=== PATIENT | male | born 1955 | race Caucasian/White ===

== ENCOUNTER 2018-10-04 07:24 | Day surgery (SDC) | payer BC, MEDICARE ==
[2018-09-25 11:50] LABS: BASOPHILS % (AUTO) 0.5 % (0-1); EOSINOPHILS # (AUTO) 0.2 X10'3 (0-0.9); EOSINOPHILS % (AUTO) 2.2 % (0-6); LYMPHOCYTES # (AUTO) 0.9 X10'3 (1.1-4.8); LYMPHOCYTES % (AUTO) 10.5 % (21-51); MEAN CORPUSCULAR HEMOGLOBIN 29.6 PG (27.0-31.0); MEAN CORPUSCULAR HGB CONC 33.4 g/dL (33.0-36.5); MEAN CORPUSCULAR VOLUME 88.5 FL (78-98); MEAN PLATELET VOLUME 9.1 FL (7.4-10.4); MONOCYTES # (AUTO) 1.1 X10'3 (0-0.9); MONOCYTES % (AUTO) 12.9 % (2-12); NEUTROPHILS # (AUTO) 6.1 X10'3 (1.8-7.7); NEUTROPHILS % (AUTO) 73.9 % (42-75); PRE OP HEMATOCRIT 52.8 % (42.0-52.0); PRE OP HEMOGLOBIN 17.7 g/dL (14.0-17.9); PRE OP PLATELET COUNT 143 X10'3 (140-440); RED BLOOD COUNT 5.97 X10'6 (4.70-6.10); RED CELL DISTRIBUTION WIDTH 17.2 % (11.5-14.5)
[2018-09-25 12:04] LABS: PRE OP PROTIME 10.5 SECONDS (9.0-12.0)
[2018-09-25 12:08] LABS: ALBUMIN 3.5 G/DL (3.4-5.0); ALKALINE PHOSPHATASE 56 IU/L (46-116); BLOOD UREA NITROGEN 16 MG/DL (7-18); BUN/CREATININE RATIO 16.8 (5.4-32.0); CHLORIDE 102 MMOL/L (99-107); CREATININE 0.95 MG/DL (0.60-1.10); PRE OP ALT 24 U/L (30-65); PRE OP ANION GAP 4 (8-16); PRE OP AST 16 U/L (10-37); PRE OP BILIRUB, TOTAL 1.8 MG/DL (0.0-1.0); PRE OP GLUCOSE 90 MG/DL (70-104); PRE OP POTASSIUM 4.2 MMOL/L (3.4-5.1); PRE OP SODIUM 139 MMOL/L (135-145); TOTAL CARBON DIOXIDE 32.6 MMOL/L (24-32); TOTAL PROTEIN 6.9 G/DL (6.4-8.2); eGFR 80 ML/MIN
[~2018-10-04] VITALS: Ht 182.9 cm; Wt 96.0 kg
[2018-10-04] VITALS (21 sets, daily range): BP systolic 107–136; BP diastolic 60–88
[~2018-10-04 07:24] MED LIST: BUPR8TAB4 SL; TADA20TA43 PO; [UNRECOGNIZED DRUG - CODE] TOP
[2018-10-04] MEDS ORDERED: cloNIDine hcl/PF 100mcg/ml inj ONE (07:27)
[2018-10-04] MEDS ORDERED: cefazolin/dext.iso 2gm/100 ML IV ONE (07:30)
[2018-10-04] MEDS ORDERED: ringers solution, lacted 1,000 ML IV SCH ×2 (07:30→07:54)
[2018-10-04] MEDS ORDERED: vancomycin inj 1,500 MG in normal saline 300ml IV soln IV ONE (07:30)
[2018-10-04] MEDS ORDERED: famotidine 20mg tablet PO ONE (07:30)
[2018-10-04] MEDS ORDERED: ondansetron/PF 4mg/2ml inj IV PRN ×2 (07:55→12:40)
[2018-10-04] MEDS ORDERED: meperidine/PF 25mg/ml syringe IV PRN ×3 (07:55)
[2018-10-04] MEDS ORDERED: morphine 4 MG/ML inj SYRINge IV PRN ×2 (07:55)
[2018-10-04] MEDS ORDERED: proCHLORperazine 10 MG/2 ml inj IV PRN (07:55)
[2018-10-04] MEDS ORDERED: diazepam 5mg tablet PO ONE (08:35)
[2018-10-04] MEDS ORDERED: sevoflurane 250ml liquid IH ONE (09:15)
[2018-10-04] MEDS ORDERED: LIDOcaine 2% (20mg/ml) 5ml vial ONE (09:15)
[2018-10-04] MEDS ORDERED: fentaNYL /PF 50mcg/ml 5ml ampule ONE (09:16)
[2018-10-04] MEDS ORDERED: MIDAZolam 5mg/5ml vial ONE (09:16)
[2018-10-04] MEDS ORDERED: ROPIVAcaine 0.5% (5mg/ml) 30ml vial ONE (09:19)
[2018-10-04] MEDS ORDERED: propofol inj 20 ML IV ONE (09:43)
[2018-10-04] MEDS ORDERED: dexamethasone sod phosphate 4mg/ml inj. ONE (09:43)
[2018-10-04] MEDS ORDERED: ketorolac trometh. 30mg/ml inj. ONE (09:47)
[2018-10-04] MEDS ORDERED: ondansetron/PF 4mg/2ml inj ONE (09:48)
[2018-10-04] MEDS ORDERED: BUPIVAcaine/PF 2.5 mg/ml (0.25%) 30ml vial ONE (09:52)
--- NOTE | 2018-10-04 12:34 | NUR ---
Received from OR via BED, accompanied by Anesthesiologist DR HELTON and report given by Anesthesiologist. PT DROWSY, DENIES PAIN, LEFT SHOULDER W/ISLAND DRSG COVERING INCISION CDI, LEFT ARM IN SLING, ICE PACK IN PLACE ON SHOULDER, HAND/ARM/FINGERS PWD. Addendum: 10/04/18 at 1310 by Morena Lee RN Amended: Links added.
[2018-10-04] MEDS ORDERED: non-formulary drug (Tadalafil 1 TAB) PO PRN (12:35)
[2018-10-04] MEDS ORDERED: acetaminophen 325mg tablet PO PRN (12:40)
[2018-10-04] MEDS ORDERED: bisacodyl 10mg suppository rectal RC PRN (12:40)
[2018-10-04] MEDS ORDERED: oxyCODONE IR 5mg (immed. release) tablet PO PRN (12:40)
[2018-10-04] MEDS ORDERED: magnesium hydroxide 30ml (MOM) UD suspension PO PRN (12:40)
[2018-10-04] MEDS ORDERED: diphenhydrAMINE 25mg capsule PO PRN (12:40)
[2018-10-04] MEDS: ketorolac trometh. 30mg/ml inj. IV SCH ×2 (13:48→20:33)
[2018-10-04] MEDS: acetaminophen 325mg tablet PO SCH ×2 (14:00→20:00)
--- NOTE | 2018-10-04 14:04 | NUR ---
Report called to receiving nurse. Transferred via BED, 1 BAG OF Belongings SENT W/PT TO ROOM 4022B, RECEIVING RN AT BEDSIDE TO RECEIVE PT, BLL, CALL LIGHT GIVEN, SIDE RAILS UP X 2, PTS PRESENT. Special Issues communicated to receiving nurse. YES. Addendum: 10/04/18 at 1410 by Morena Lee RN Amended: Links added.
[2018-10-04] MEDS ORDERED: BUPR1TAB36 SL (15:36)
[2018-10-04] MEDS: ceFAZolin 1GM/D5W- ADD-VANTAGE 50 ML IV SCH ×2 (15:38→23:16)
[2018-10-04] MEDS: potassium Cl 20mEq in NS 1,000 ML IV SCH (15:38)
[2018-10-04] MEDS: buprenorphine/naloxone 8mg/2mg SL tablet SL SCH ×2 (16:02→23:16)
--- NOTE | 2018-10-04 18:15 | NUR ---
Patient in room ORTH[facility] 4022. I have received report from Rani CURRAN and had the opportunity to ask questions and assume patient care.
--- NOTE | 2018-10-04 18:30 | NUR ---
Problems reprioritized. Patient report given, questions answered & plan of care reviewed with ZHANNA CURRAN.
[2018-10-04] MEDS ORDERED: vancomycin/NS 1 GM ADD-VANTAGE 250 ML IV SCH (20:00)
[2018-10-04] MEDS ORDERED: sennosides 8.6mg tablet PO SCH (21:00)
[2018-10-04] MEDS ORDERED: ALPRAZolam 0.5mg tablet PO ONE (21:00)
--- NOTE | 2018-10-04 23:30 | NUR ---
pt suboxone is Q8. pt did not want medication at 2100 and asked to push the time back when ready. will continue to monitor.
[2018-10-05] MEDS: diphenhydrAMINE 25mg capsule PO PRN ×2 (00:29→07:23)
[2018-10-05 02:00] VITALS: BP 122/74
[2018-10-05] MEDS: acetaminophen 325mg tablet PO SCH ×2 (02:00→08:00)
[2018-10-05] MEDS: ketorolac trometh. 30mg/ml inj. IV SCH ×2 (03:01→07:22)
[2018-10-05] MEDS: potassium Cl 20mEq in NS 1,000 ML IV SCH (03:40)
[2018-10-05 06:00] VITALS: BP 132/74
--- NOTE | 2018-10-05 06:12 | NUR ---
Patient in room ORTHO 4022. I have received report from ZHANNA CURRAN and had the opportunity to ask questions and assume patient care.
--- NOTE | 2018-10-05 06:12 | NUR ---
Problems reprioritized. Patient report given, questions answered & plan of care reviewed with Rani CURRAN.
[2018-10-05] MEDS: buprenorphine/naloxone 8mg/2mg SL tablet SL SCH (07:23)
[2018-10-05] MEDS ORDERED: aspirin 325mg tablet PO SCH (08:30)
--- NOTE | 2018-10-05 11:15 | NUR ---
PATIENT DISCHARGED SAFELY WITH . ALL BELONGINGS IN POSSESSION. PATIENT VERBALIZES UNDERSTANDING OF ALL DISCHARGE INSTRUCTIONS. PATIENT GOING STRAIGHT TO DR JOHN'S OFFICE TO ORCHARD MANAGER PAIN PRESCRIPTIONS.
== END 2018-10-05 11:15 | disposition home or self-care (01) ==
LOC: PAS 07:24 → ORTHO 4S 12:36 → PAS 10-05 11:15
PROVIDERS: ATTEND Orthopaedic Surgery
DX: S46.012A Strain of muscle(s) and tendon(s) of the rotator cuff of left shoulder, initial encounter (principal); M19.012 Primary osteoarthritis, left shoulder; M75.22 Bicipital tendinitis, left shoulder; X58.XXXA Exposure to other specified factors, initial encounter; Y93.89 Activity, other specified; Y92.89 Other specified places as the place of occurrence of the external cause; Y99.8 Other external cause status; Z98.890 Other specified postprocedural states; Z79.899 Other long term (current) drug therapy
CPT/HCPCS: 23120; 23130; 23412; 23430; 36415; 64415; 76942; 80053; 82948; 85025; 85610; 85730; 93005; A6223; C1713; J0690; J0735; J1100; J1885; J2001; J2250; J2405; J2704; J3010; J3370; J3480; J3490; J7120; Q0163; A4565; A4618; A6253; A6449; A7000; G0378; J2795